=== PATIENT | female | born 1990 | race Asian ===

== ENCOUNTER 2018-02-09 20:40 | Inpatient (IN) | payer SELFPAY ==
[~2018-02-09] VITALS: Ht 162.6 cm; Wt 66.7 kg
[2018-02-09] MEDS ORDERED: NALBUPHINE 10 MG/ML AMP IVP PRN (21:10)
[2018-02-09] MEDS ORDERED: PROMETHAZINE 25 MG/ML VIAL IVP PRN (21:10)
[2018-02-09] MEDS ORDERED: OXYTOCIN 10 UNITS/ML VIAL IM ONE (21:10)
[2018-02-09] MEDS ORDERED: OXYTOCIN 20 UNITS in LACTATED RINGERS 1,000 ML IV SCH (21:10)
[2018-02-09 21:38] LABS: BASOPHILS % (AUTO) 0.2 % (0.0-2.0); EOSINOPHILS # (AUTO) 0.1 K/uL (0-0.4); EOSINOPHILS % (AUTO) 0.7 % (0.0-4.0); HEMATOCRIT 35.5 % (36-48); HEMOGLOBIN 12.1 g/dL (12.0-16.0); LYMPHOCYTES # (AUTO) 1.3 K/uL (2.5-16.5); LYMPHOCYTES % (AUTO) 12.9 % (20.5-51.1); MEAN CORPUSCULAR HEMOGLOBIN 31 pg (27-31); MEAN CORPUSCULAR HGB CONC 34 g/dL (33-37); MEAN CORPUSCULAR VOLUME 89.9 fL (80-94); MONOCYTES # (AUTO) 0.6 K/uL (0.8-1.0); MONOCYTES % (AUTO) 5.4 % (1.7-9.3); NEUTROPHILS # (AUTO) 8.3 K/uL (1.8-7.7); NEUTROPHILS % (AUTO) 80.8 % (42.2-75.2); PLATELET COUNT (AUTO) 205 K/uL (140-450); RED BLOOD CELL COUNT(AUTO) 3.95 MIL/uL (4.20-5.40); RED CELL DISTRIBUTION WIDTH 14.7 % (11.6-13.7); WHITE BLOOD COUNT (AUTO) 10.3 K/uL (4.8-10.8)
[2018-02-09] MEDS: LACTATED RINGERS 1,000 ML IV SCH (21:41)
[2018-02-09] MEDS ORDERED: AMPICILLIN 2,000 MG in NACL 0.9% 100 ML IV ONE (21:45)
[2018-02-09] MEDS ORDERED: AMPICILLIN 2,000 MG VIAL ONE (21:50)
[2018-02-09 22:02] LABS: APPEARANCE,URINE CLEAR (CLEAR); BILIRUBIN,URINE NEGATIVE (NEGATIVE); BLOOD, URINE NEGATIVE (NEGATIVE); COLOR,URINE YELLOW (YELLOW); LEUKOCYTE ESTERASE ,URINE NEGATIVE (NEGATIVE); NITRITE, URINE NEGATIVE (NEGATIVE); PH,URINE 6.5 (5.0-9.0); UGLUCOSE NEGATIVE (NEGATIVE)
[2018-02-09] MEDS ORDERED: OSC500 PO (22:48)
[2018-02-09] MEDS ORDERED: DOCO100C PO (22:48)
[2018-02-09 22:52] VITALS: BP 120/79
[2018-02-09] MEDS ORDERED: OXYTOCIN 20 UNITS/LR PREMIX 1,000 ML IV ONE (22:58)
[2018-02-10] MEDS ORDERED: AMPICILLIN 1,000 MG VIAL ONE ×4 (00:01→12:06)
[2018-02-10] MEDS: AMPICILLIN 1,000 MG in NACL 0.9% 50 ML IV SCH ×4 (00:02→12:06)
[2018-02-10] MEDS ORDERED: NALBUPHINE 10 MG/ML AMP ONE (02:09)
[2018-02-10] MEDS ORDERED: PROMETHAZINE 25 MG/ML VIAL ONE (02:09)
[2018-02-10] MEDS: OXYTOCIN 20 UNITS in LACTATED RINGERS 1,000 ML IV SCH (03:00)
[2018-02-10] MEDS: LACTATED RINGERS 1,000 ML IV SCH ×2 (04:56→05:51)
[2018-02-10] MEDS ORDERED: ROPIVACAINE 0.2%/NS PREMIX 250 ML EPI ONE (05:24)
--- NOTE | 2018-02-10 09:23 | NUR ---
PATIENT HAS BEEN SCREENED AND CATEGORIZED LOW NUTRITION RISK. PATIENT WILL BE SEEN WITHIN 7 DAYS OF ADMISSION. 02/16/[address]
[2018-02-10] MEDS ORDERED: CEFAZOLIN SODIUM 2 GM/D5W PM 50 ML IV SCH (12:20)
[2018-02-10] MEDS ORDERED: TRIAMCINOLONE 10 MG/ML 5ML VIAL ONE (16:09)
[2018-02-10] MEDS ORDERED: OXYTOCIN 10 UNITS/ML VIAL ONE (16:09)
[2018-02-10] MEDS ORDERED: MIDAZOLAM 2 MG/2 ML VIAL ONE (16:15)
[2018-02-10] MEDS ORDERED: MORPHINE PRES FREE 2 MG/2 ML 2 mL UD SYRINGE ONE (16:15)
[2018-02-10] MEDS ORDERED: ceFAZolin 1,000 MG VIAL IVP ONE (16:20)
[2018-02-10] MEDS ORDERED: TRIMETHOBENZAMIDE 200 MG/2 ML SYR IM PRN (16:55)
[2018-02-10] MEDS ORDERED: METHYLERGONOVINE 0.2 MG/ML AMP IM PRN (16:55)
[2018-02-10] MEDS ORDERED: MEASLES, MUMPS, AND RUBELLA 1 VIAL SQVAC PRN (16:55)
[2018-02-10] MEDS ORDERED: SIMETHICONE 80 MG TAB.CHEW PO PRN (16:55)
[2018-02-10] MEDS ORDERED: OXYTOCIN 20 UNITS in LACTATED RINGERS 1,000 ML IV SCH (16:57)
[2018-02-10] MEDS ORDERED: NALOXONE 0.4 MG/ML VIAL IVP PRN ×3 (17:00)
[2018-02-10] MEDS ORDERED: NALBUPHINE 10 MG/ML AMP IVP PRN (17:00)
[2018-02-10] MEDS ORDERED: MEPERIDINE 25 MG/ML SYR IVP PRN (17:00)
[2018-02-10] MEDS ORDERED: diphenhydrAMINE 50 MG/ML VIAL IVP PRN ×2 (17:00)
[2018-02-10] MEDS ORDERED: ONDANSETRON 4 MG/2 ML VIAL IVP PRN ×2 (17:00)
[2018-02-10] MEDS ORDERED: HYDROmorphone 1 MG/ML AMP IVP PRN (17:00)
[2018-02-10] MEDS ORDERED: OXYTOCIN 20 UNITS/LR PREMIX 1,000 ML IV ONE (17:18)
[2018-02-10] MEDS ORDERED: ONDANSETRON 4 MG/2 ML VIAL ONE (17:18)
[2018-02-10] MEDS ORDERED: KETOROLAC 30 MG/ML VIAL ONE (17:18)
[2018-02-10] MEDS: KETOROLAC 30 MG/ML VIAL IM/IVP SCH (18:00)
[2018-02-10] MEDS: DOCUSATE SOD/SENNA 50/8.6 MG 1 TAB PO SCH (21:00)
[2018-02-11] MEDS: CEFAZOLIN SODIUM 2 GM/D5W PM 50 ML IV SCH ×3 (00:30→15:34)
[2018-02-11] MEDS: KETOROLAC 30 MG/ML VIAL IM/IVP SCH ×2 (00:31→06:08)
[2018-02-11 06:48] LABS: BASOPHILS % (AUTO) 0.3 % (0.0-2.0); EOSINOPHILS % (AUTO) 0.2 % (0.0-4.0); HEMOGLOBIN 11.7 g/dL (12.0-16.0); LYMPHOCYTES % (AUTO) 6.6 % (20.5-51.1); MEAN CORPUSCULAR HEMOGLOBIN 31 pg (27-31); MEAN CORPUSCULAR HGB CONC 34 g/dL (33-37); MONOCYTES # (AUTO) 0.8 K/uL (0.8-1.0); MONOCYTES % (AUTO) 5.3 % (1.7-9.3); NEUTROPHILS # (AUTO) 13.1 K/uL (1.8-7.7); NEUTROPHILS % (AUTO) 87.6 % (42.2-75.2); PLATELET COUNT (AUTO) 173 K/uL (140-450); RED BLOOD CELL COUNT(AUTO) 3.78 MIL/uL (4.20-5.40); RED CELL DISTRIBUTION WIDTH 14.6 % (11.6-13.7)
[2018-02-11] MEDS ORDERED: IBUPROFEN 800 MG TAB PO PRN (11:00)
[2018-02-11] MEDS ORDERED: TEMAZEPAM 15 MG CAP PO PRN (11:00)
[2018-02-11] MEDS ORDERED: oxyCODONE/APAP 5/325 MG 1 TAB TAB PO PRN (11:00)
[2018-02-11] MEDS: OXYTOCIN 20 UNITS in LACTATED RINGERS 1,000 ML IV SCH (11:35)
[2018-02-11] MEDS ORDERED: KETOROLAC 30 MG/ML VIAL IVP SCH (13:30)
[2018-02-11] MEDS: HYDROcodone/APAP 5/325 MG 1 TAB TAB PO PRN (18:47)
[2018-02-12] MEDS: HYDROcodone/APAP 5/325 MG 1 TAB TAB PO PRN ×2 (17:21→21:59)
[2018-02-12] MEDS: DOCUSATE SOD/SENNA 50/8.6 MG 1 TAB PO SCH (21:55)
== END 2018-02-13 17:05 | disposition home or self-care (01) | DRG 766 ==
LOC: MLD 20:40 → OBSVTOIN 21:13 → MFCC 02-10 17:50
PROVIDERS: ADMIT Obstetrics & Gynecology; ATTEND Obstetrics & Gynecology
PROC: 10D00Z1 Extraction of Products of Conception, Low, Open Approach (ICD-10-PCS; principal; 2018-02-10 16:30)
PROC: 3E0234Z Introduction of Serum, Toxoid and Vaccine into Muscle, Percutaneous Approach (ICD-10-PCS; 2018-02-12)
DX: O62.2 Other uterine inertia (principal); O64.0XX0 Obstructed labor due to incomplete rotation of fetal head, not applicable or unspecified; O69.81X0 Labor and delivery complicated by cord around neck, without compression, not applicable or unspecified; Z37.0 Single live birth; Z3A.39 39 weeks gestation of pregnancy; Z23 Encounter for immunization
CPT/HCPCS: 36415; 51702; 81003; 85025; 86592; 86886; 86900; 86901; 87340; 90715; G0378; J0290; J0690; J1885; J2250; J2270; J2300; J2405; J2550; J2590; J2795; J3301; J7060; J7120